=== PATIENT | female | born 1965 | race African-American/Black ===

== ENCOUNTER 2020-07-31 20:34 | Emergency (ER) | payer MEDICARE ==
[2020-07-31] MEDS ORDERED: diphenhydrAMINE 50 MG/ML 1 ML VIAL IVP STA (20:47)
[2020-07-31] MEDS ORDERED: MORPHINE SULFATE 4 MG/ML SYRINGE IV STA (20:47)
[2020-07-31] MEDS ORDERED: SODIUM CHLORIDE 0.9% 1,000 ML IV STA (20:47)
[2020-07-31] MEDS ORDERED: ONDANSETRON 4 MG/2 ML VIAL IVP STA (20:47)
--- NOTE | 2020-07-31 20:50 | ED ---
Headache HPI - General Stated Complaint: Back Pain Source: patient, RN notes reviewed - History of Present Illness Initial Comments: Patient is a 55-year-old female that presents emergency, complaining of headache and low back and upper back pain. She notes that she does have a history of a cervical fusion, lumbar fusion and 2 knee surgeries. She notes that in 2017 she fell down a flight of concrete stairs and got messed up pretty bad. She notes that over the last several days she's been traveling a lot and sitting which she states causes her chronic pain and a flareup. She also notes that she does have a history of migraines and is currently experiencing those. She notes that this feels very similar to her previous migraines. She notes that she had stopped taking her pain medication is not follow-up with her primary care to discuss alternatives. She noted that she was in 10 out of 10 pain while laying in bed area and she notes that she does only have one kidney. She denied any chest pain shortness of breath nausea vomiting diarrhea constipation fever fatigue chills lightheadedness dizziness blurry vision. - Related Data Allergies Allergy/AdvReac Type Severity Reaction Status Date / Time lisinopril Allergy Swelling Verified 07/31/20 21:01 Review of Systems ROS Statement: Those systems with pertinent positive or pertinent negative responses have been documented in the HPI. ROS Other: All systems not noted in ROS Statement are negative. General Exam General appearance: alert, in no apparent distress Head exam: Present: atraumatic, normocephalic, normal inspection Eye exam: Present: normal appearance, PERRL, EOMI. Absent: scleral icterus, conjunctival injection, periorbital swelling Neck exam: Present: normal inspection Respiratory exam: Present: normal lung sounds bilaterally. Absent: respiratory distress, wheezes, rales, rhonchi, stridor Cardiovascular Exam: Present: regular rate, normal rhythm, normal heart sounds. Absent: systolic murmur, diastolic murmur, rubs, gallop, clicks GI/Abdominal exam: Present: soft, normal bowel sounds. Absent: distended, tenderness, guarding, rebound, rigid Extremities exam: Present: normal inspection, full ROM, normal capillary refill. Absent: tenderness, pedal edema, joint swelling, calf tenderness Back exam: Present: normal inspection Neurological exam: Present: alert, oriented X3, CN II-XII intact Psychiatric exam: Present: normal affect, normal mood Skin exam: Present: warm, dry, intact, normal color. Absent: rash Course Vital Signs 07/31/20 07/31/20 20:43 21:45 Temperature 98.7 F Pulse Rate 79 75 Respiratory 18 18 Rate Blood Pressure 173/92 157/85 O2 Sat by Pulse 97 98 Oximetry Medical Decision Making - Medical Decision Making Patient is a 55-year-old female complaining of low back upper back pain and a headache after traveling for the last few days. Does have a history of chronic low back and neck pain and migraines. 1 L normal saline, 4 mg of morphine, 4 mg of Zofran, 50 mg of Benadryl ordered. Upon reevaluation patient states she feels much better like to go home. Case discussed with Dr. Collazo, patient can discharge home with follow-up primary care. Patient declined the need for any pain medication only. Disposition Clinical Impression: Chronic back pain, Migraine Disposition: HOME SELF-CARE Condition: Stable Instructions (If sedation given, give patient instructions): Acute Low Back Pain (ED) Additional Instructions: Please return to the Emergency Department if symptoms worsen or any other concerns. Avoid any strenuous activity or lifting. Follow-up with primary care in the next 2-3 days. Continue take at home medications such as Tylenol Motrin for pain control. Is patient prescribed a controlled substance at d/c from ED?: No Referrals: Nonstaff,Physician [Primary Care Provider] - 1-2 days Time of Disposition: 22:29
[2020-07-31] MEDS ORDERED: diphenhydrAMINE 50 MG CAP PO STA (21:20)
[2020-07-31] MEDS ORDERED: ONDANSETRON 4 MG TAB PO STA (21:20)
[2020-07-31] MEDS ORDERED: MORPHINE SULFATE 4 MG/ML SYRINGE IM STA (21:20)
[2020-07-31 22:45] VITALS: BP 149/93; PULSE 62; RESP 17; TEMP 98.1
== END 2020-07-31 22:44 | disposition home or self-care (01) ==
LOC: EC 20:34
DX: G43.909 Migraine, unspecified, not intractable, without status migrainosus (principal); M54.6 Pain in thoracic spine
CPT/HCPCS: 99284; 96372; J2270

== ENCOUNTER → 2020-10-09 | Outpatient (CLI) | payer MEDICARE ==
--- NOTE | 2020-10-09 19:21 | MR ---
EXAMINATION TYPE: MR [facility]/lspine wo/w con DATE OF EXAM: 10/09/2020 COMPARISON: None HISTORY: Low back and cervical pain CONTRAST: Standard multiplanar, multisequence MRI departmental protocol utilizing 7.5 mL intravenous Gadavist g adolinium contrast. Cervical spine Cervical vertebra have normal alignment. There is metal artifact from anterior fusion surgery from C5 to C7. There is small posterior disc bulge at C5-6. There is developmentally adequate spinal canal. There is no spinal stenosis. There is no compression fracture. Cervical spinal cord has normal signal pattern. There is no edema. Spinal canal measures 8 mm at C3-4 which is the narrowest point. There i s posterior concentric disc herniation at T1-T2 without significant impingement on the spinal cord. I s no pathologic enhancement. IMPRESSION: Previous surgery. No spinal stenosis. Minimal posterior disc bulge at C5-6. Mild posterior disc herni ation at T1-T2. Lumbar spine. Lumbar vertebra have normal alignment. Disc spaces are fairly normal. There is metal artifact from po sterior fusion surgery at L5-S1. There is a small posterior disc bulge at L4-5. There is developmenta lly large spinal canal and no spinal stenosis. The neural foramina appear fairly well-maintained. Lum bar nerve roots appear normal. There is no compression fracture. There is no lumbar paraspinal mass. There is partial visualization of sacroiliac joints which appear normal. Contrast images show no path ologic enhancement. IMPRESSION: Previous fusion surgery. No spinal stenosis. No evidence of any significant lumbar disc herniation.
== END | disposition home or self-care (01) ==
LOC: RADMRIMAIN 12:41
PROVIDERS: ATTEND Family Medicine
DX: M54.12 Radiculopathy, cervical region (principal); M54.16 Radiculopathy, lumbar region
CPT/HCPCS: 72156; 72158; A9585